=== PATIENT | female | born 1990 | race Caucasian/White ===

== ENCOUNTER 2017-12-08 16:39 | Emergency (ER) | payer OTHER ==
[2017-12-08] MEDS ORDERED: NS 1,000 ML IV ONE (17:06)
--- NOTE | 2017-12-08 17:17 | EDPHY ---
H & P Time Seen by Provider: 12/08/17 16:48 HPI/ROS: CHIEF COMPLAINT: Abdominal pain HISTORY OF PRESENT ILLNESS: 27-year-old female presents to the emergency department with right lower quadrant abdominal pain. Patient states that 10:00 p.m. Last night she was having some epigastric abdominal pain. She did not sleep well throughout the night. When she woke up this morning she had more localized pain in her right lower quadrant. She feels slightly nauseous and vomited 1 time last night. The patient is 9 weeks with her 1st . She had an appointment today with OBGYN and had an ultrasound which revealed a single living IUP. No evidence of ectopic per patient. Patient has had no vaginal bleeding or spotting. She has urinary frequency since she found out she was , however denies dysuria or urgency with urination. Has had low-grade temperature of 99.4 degrees. Denies chest pain or difficulty breathing. Denies back pain. Denies any reported trauma. Had frequent bowel movements yesterday, however no diarrhea. No melena or blood. REVIEW OF SYSTEMS: Constitutional: No fever, no chills. Eyes: No double or blurry vision. ENT: No sore throat. Respiratory: No cough, no shortness of breath. Cardiac: No chest pain. Gastrointestinal: Abdominal pain as above. No vomiting or diarrhea. Genitourinary: No dysuria. Musculoskeletal: No neck or back pain. Skin: No rashes. Neurological: No headache. 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 Afebrile. No apparent distress. Eyes: Pupils equal and round. Extraocular motions are all intact. ENT: Mouth: Mucous membranes moist. Respiratory: No wheezing, rhonchi, or rales, lungs are clear to auscultation. Cardiovascular: Regular rate and rhythm. Gastrointestinal: Abdomen is soft. Tenderness with palpation in the right lower quadrant. There is no rebound, guarding or masses noted. No CVA tenderness bilaterally. Neurological: Alert and oriented x 3, cranial nerves II through XII grossly intact Skin: Warm and dry, no rashes. Musculoskeletal: Nontender to palpate along the cervical, thoracic or lumbar spine. Neck is supple. Extremities: Full range of motion and no peripheral edema. Psychiatric: Patient is oriented X 3, there is no agitation. Constitutional: Initial Vital Signs Temperature (C) 36.8 C 12/08/17 16:41 Heart Rate 108 H 12/08/17 16:41 Respiratory Rate 17 12/08/17 16:41 Blood Pressure 119/79 12/08/17 16:41 O2 Sat (%) 98 12/08/17 16:41 O2 Delivery Mode Room Air Allergies/Adverse Reactions: ceftriaxone [From Rocephin] Allergy (Verified 12/08/17 16:41) Home Medications: Medication Instructions Recorded Ondansetron Odt [Zofran Odt 4 mg 4 mg PO Q4H PRN #20 tab 12/08/17 (*)] 12/08/17 Medical Decision Making - Diagnostics Imaging Results: Imaging Impressions Abdomen Ultrasound 12/08/17 17:06 Impression: There is a single viable intrauterine gestation with biometry concordant with menstrual dating. The patient should return at 20 weeks gestation for more complete anatomic screening and repeat biometry. LIMITED ABDOMINAL (APPENDICEAL) ULTRASOUND Technique: The right lower quadrant was evaluated with a high-resolution linear transducer, utilizing graded compression and color Doppler. Comparison Study: None. Findings: The cecum is identified, and is air-filled; the patient is not point- tender while scanning over the cecum. The appendix is not identified, however there is no rebound tenderness. There is a small amount of free fluid in the right lower quadrant. There are enlarged mesenteric lymph nodes identified (e.g. , the largest measuring 1.9 x 1.8 x 0.5 cm and 2.4 x 0.5 x 1.2 cm). Impression: 1. Nondiagnostic assessment of the appendix. 2. Right lower quadrant mesenteric adenitis, with a small amount of free fluid also seen. Findings were discussed with NEVIN CURTIS PA-C at 18:12, on 12/08/2017. Obstetrics Ultrasound 12/08/17 17:24 Impression: There is a single viable intrauterine gestation with biometry concordant with menstrual dating. The patient should return at 20 weeks gestation for more complete anatomic screening and repeat biometry. LIMITED ABDOMINAL (APPENDICEAL) ULTRASOUND Technique: The right lower quadrant was evaluated with a high-resolution linear transducer, utilizing graded compression and color Doppler. Comparison Study: None. Findings: The cecum is identified, and is air-filled; the patient is not point- tender while scanning over the cecum. The appendix is not identified, however there is no rebound tenderness. There is a small amount of free fluid in the right lower quadrant. There are enlarged mesenteric lymph nodes identified (e.g. , the largest measuring 1.9 x 1.8 x 0.5 cm and 2.4 x 0.5 x 1.2 cm). Impression: 1. Nondiagnostic assessment of the appendix. 2. Right lower quadrant mesenteric adenitis, with a small amount of free fluid also seen. Findings were discussed with NEVIN CURTIS PA-C at 18:12, on 12/08/2017. Imaging: Discussed imaging studies w/ call center operations manager Radiologist ED Course/Re-evaluation: 27-year-old female presents to the emergency department with abdominal pain. She is 9 weeks . Limited abdominal ultrasound and pelvic ultrasound obtained. Pelvic ultrasound reveals 9 week intrauterine with no evidence of torsion or free fluid. Limited abdominal ultrasound unable to see appendix. There is small amount of free fluid. There were inflamed lymph nodes noted in the right lower quadrant. Possibly related to mesenteric adenitis. 18:20: I spoke with Dr. Dmitriy Hidalgo, on-call general surgeon, regarding this patient's abdominal pain and concern for possible acute appendicitis. The patient was kept NPO and he will come to see the patient. Dr. Dmitriy Hidalgo offered admission to the hospital for observation, however the patient declined. The patient will return to the emergency department if she develops worsening abdominal pain, vomiting, fever, or if she feels worse in any way. Differential Diagnosis: Including but not limited to acute appendicitis, urinary tract infection, pyelonephritis, intrauterine , ectopic , mesenteric adenitis, gastritis, gastroenteritis - Data Points Laboratory Results: Laboratory Results 12/08/17 17:10 12/08/17 17:10 12/08/17 12/08/17 12/08/17 18:00 17:10 17:10 WBC 11.23 10^3/uL H 10^3/uL (3.80-9.50) RBC 4.47 10^6/uL 10^6/uL (4.18-5.33) Hgb 13.5 g/dL g/dL (12.6-16.3) Hct 38.4 % % (38.0-47.0) MCV 85.9 fL fL (81.5-99.8) MCH 30.2 pg pg (27.9-34.1) MCHC 35.2 g/dL g/dL (32.4-36.7) RDW 12.4 % % (11.5-15.2) Plt Count 296 10^3/uL 10^3/uL (150-400) MPV 9.2 fL fL (8.7-11.7) Neut % (Auto) 77.2 % H % (39.3-74.2) Lymph % (Auto) 10.8 % L % (15.0-45.0) [place] % (Auto) 9.2 % % (4.5-13.0) Eos % (Auto) 2.1 % % (0.6-7.6) Baso % (Auto) 0.4 % % (0.3-1.7) Nucleat RBC Rel Count 0.0 % % (0.0-0.2) Absolute Neuts (auto) 8.67 10^3/uL H 10^3/uL (1.70-6.50) Absolute Lymphs (auto) 1.21 10^3/uL 10^3/uL (1.00-3.00) Absolute Monos (auto) 1.03 10^3/uL H 10^3/uL (0.30-0.80) Absolute Eos (auto) 0.24 10^3/uL 10^3/uL (0.03-0.40) Absolute Basos (auto) 0.05 10^3/uL 10^3/uL (0.02-0.10) Absolute Nucleated RBC 0.00 10^3/uL 10^3/uL (0-0.01) Immature Gran % 0.3 % % (0.0-1.1) Immature Gran # 0.03 10^3/uL 10^3/uL (0.00-0.10) Sodium 134 mEq/L L mEq/L (135-145) Potassium 3.8 mEq/L mEq/L (3.5-5.2) Chloride 99 mEq/L mEq/L (97-110) Carbon Dioxide 22 mEq/l mEq/l (22-31) Anion Gap 13 mEq/L mEq/L (8-16) BUN 7 mg/dL mg/dL (7-23) Creatinine 0.6 mg/dL mg/dL (0.6-1.0) Estimated GFR > 60 Glucose 94 mg/dL mg/dL (70-100) Calcium 9.7 mg/dL mg/dL (8.5-10.4) Urine Color PALE YELLOW Urine Appearance CLEAR Urine pH 6.0 (5.0-7.5) Ur Specific [place] 1.004 (1.002-1.030) Urine Protein NEGATIVE (NEGATIVE) Urine Ketones NEGATIVE (NEGATIVE) Urine Blood NEGATIVE (NEGATIVE) Urine Nitrate NEGATIVE (NEGATIVE) Urine Bilirubin NEGATIVE (NEGATIVE) Urine Urobilinogen NEGATIVE EU EU (0.2-1.0) Ur Leukocyte Esterase NEGATIVE (NEGATIVE) Urine RBC NONE SEEN /hpf /hpf (0-3) Urine WBC 1-3 /hpf /hpf (0-3) Ur Epithelial Cells TRACE /lpf /lpf (NONE-1+) Urine Bacteria 1+ /hpf H /hpf (NONE SEEN) Urine Mucus TRACE /lpf /lpf (NONE-1+) Urine Glucose NEGATIVE (NEGATIVE) Medications Given: Discontinued Medications Sodium Chloride (Ns) 1,000 mls @ 0 mls/hr IV ONCE ONE PRN Reason: Wide Open Stop: 12/08/17 17:07 Last Admin: 12/08/17 17:11 Dose: 1,000 mls Ondansetron HCl (Zofran) 4 mg IVP EDNOW ONE Stop: 12/08/17 18:31 Last Admin: 12/08/17 18:37 Dose: 4 mg Ondansetron HCl (Zofran Odt 4 Mg Prepack#2) 1 btl TAKEHOME EDNOW ONE Stop: 12/08/17 20:11 Last Admin: 12/08/17 20:16 Dose: 1 btl Departure - Departure Disposition: Home, Routine, Self-Care Clinical Impression: Intrauterine Abdominal pain Qualifiers: Abdominal location: right lower quadrant Qualified Code(s): R10.31 - Right lower quadrant pain Condition: Fair Instructions: Ondansetron (By mouth), Acute Abdominal Pain (ED), First Trimester (ED) Additional Instructions: Abdominal Pain: Return to the Emergency Department immediately for increasing pain, fever, vomiting, or if not completely better in 8-12 hours. Referrals: Dmitriy Hidalgo MD [Medical Doctor] - As per Instructions (General surgeon on- call) Prescriptions: Ondansetron Odt [Zofran Odt 4 mg (*)] 4 mg PO Q4H PRN #20 tab PRN Reason: Nausea/Vomiting, Use 1st
[2017-12-08 17:25] LABS: PLATELET COUNT 296 10^3/uL (150-400)
[2017-12-08] MEDS ORDERED: ONDANSETRON 4 MG/2 ML VIAL IVP ONE (18:30)
[2017-12-08 19:44] VITALS: RESP 16
[2017-12-08] MEDS ORDERED: ONDANSETRON DISINTEGRATING 4 MG TAB PO PRN (19:53)
--- NOTE | 2017-12-08 19:55 | PDCONSULT ---
Punching Machine Operator Note: #[id number] S MD Gwen, FACS
[2017-12-08] MEDS ORDERED: ONDANSETRON 4MG PREPACK#2 BTL TAKEHOME ONE (20:10)
[2017-12-08 20:18] VITALS: BP 112/73; PULSE 88; TEMP 99.1; O2SAT 98
--- NOTE | 2017-12-08 21:25 | GCON ---
[f rep st] CONSULTATION GENERAL SURGERY CONSULTATION DATE OF CONSULTATION: 12/08/2017 REFERRING PHYSICIAN: DAVID Triplett CHIEF COMPLAINT: Abdominal pain. HISTORY OF PRESENT ILLNESS: The patient is a 27-year-old female with a 9-week intrauterine who presented to the emergency room today for evaluation of abdominal pain. The patient began feeli ng ill yesterday morning when she awoke and was lightheaded and dizzy. Throughout the day, she had s everal bowel movements, and when she returned home in the early evening, developed epigastric abdomin al pain and nausea. She had been experiencing nightly nausea for the past 3-4 weeks, and that sympto m was not new. The epigastric pain, however, had not previously occurred. She continued to feel poo rly throughout the evening. The pain became more lower abdominal in the morning, and she presented t [facility] for evaluation. She was discharged home and returned to the emergency room in the afternoon when her symptoms became worse. She was seen in the emergency room by Sonal Vasquez PA-C. An ultrasound was performed and Surgical consultation was requested. PAST MEDICAL HISTORY: G1, P0. MEDICATIONS: Zyrtec. ALLERGIES: Ceftriaxone. PAST SURGICAL HISTORY: No prior abdominal surgeries. SOCIAL HISTORY: The patient is a nonsmoker. Denies alcohol use. Patient is , accompanied by her , Tomas. 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 FAMILY HISTORY: Noncontributory. REVIEW OF SYSTEMS: Patient denies diarrhea, melena, hematochezia. She had 1 episode of emesis last night; none since then. She is currently hungry. There is no history of trauma. She has had no vag inal bleeding or discharge. PHYSICAL EXAMINATION: VITAL SIGNS: Temperature 36.8, subsequently gretchen to 38, and then to 37.3, pul se 90, respiratory rate 16, O2 saturation is 96% on room air. GENERAL: The patient is a pleasant, y oung woman who appears in no acute distress. When I walked into the room, she sat bolt upright on he zakiya clay and greeted me. HEENT: No cervical or supraclavicular adenopathy. Sclerae are anicteric. LUNGS: Clear to auscultation. ABDOMEN: Soft, with normoactive bowel sounds. Patient has percussi on tenderness in the right and left lateral lower quadrants, as well as in the suprapubic midline. T here is mild tenderness to deep palpation in both lower quadrants. Rovsing sign is negative. There is no guarding in the right lower quadrant. No palpable mass. There is no upper abdominal tendernes s, mass, hepatosplenomegaly. There is no palpable hernia. There is no back, flank, or CVA tendernes s. PELVIC: Exam was not performed. IMAGING: Ultrasound images were reviewed and demonstrate an uncomplicated 9-week intrauterine pregna ncy, small left ovarian cyst, no free fluid in the pelvis. The appendix was not visualized. LABORATORY STUDIES: WBC is 11.2, hemoglobin 13.5, hematocrit 38.4, platelets 296,000. Sodium 134, p otassium 3.8, chloride 99, BUN 7, creatinine 0.6. Urinalysis was negative on dipstick, trace epithel ial cells and +1 bacteria, with 1-3 white blood cells, no glucose. IMPRESSION: Abdominal pain of unclear etiology. Clinical exam and history not entirely consistent w ith appendicitis, though this could not be excluded. I discussed the options of management with the patient, including appendectomy under spinal anesthesia versus observation. The patient is comfortab le with a further period of observation. I offered hospitalization for observation, and she preferre d to return home, and will contact me directly should she have worsening symptoms, or I will be happy to see her in the office as an outpatient as well tomorrow. /[id number]/MODL
== END 2017-12-08 20:18 | disposition home or self-care (01) ==
DX: O26.891 Other specified pregnancy related conditions, first trimester (principal); R10.31 Right lower quadrant pain; E86.9 Volume depletion, unspecified; Z3A.09 9 weeks gestation of pregnancy
CPT/HCPCS: 96374; J2405

== ENCOUNTER → 2018-03-10 | Outpatient (CLI) | payer OTHER | LOC: FIMAGING 07:24 | PROVIDERS: ATTEND Obstetrics & Gynecology | DX: Z34.02 Encounter for supervision of normal first pregnancy, second trimester (principal); Z3A.21 21 weeks gestation of pregnancy ==

== ENCOUNTER 2018-07-13 23:36 | Inpatient (IN) | payer OTHER ==
[2018-07-14] MEDS: LR 500 ML IV SCH ×2 (00:05→06:55)
[2018-07-14] MEDS ORDERED: fentaNYL 100 MCG/2 ML INJ IVP ONE (00:20)
[2018-07-14] MEDS ORDERED: LIDOCAINE 1% 300 MG/30 ML SDV SC PRN (00:57)
[2018-07-14] MEDS ORDERED: MISOPROSTOL 200 MCG TAB PR PRN (00:57)
[2018-07-14] MEDS ORDERED: OLIVE OIL 118 ML BTL MISC PRN (00:57)
[2018-07-14] MEDS ORDERED: OXYTOCIN/RINGERS LACTATE 1,000 ML IV PRN (00:57)
[2018-07-14] MEDS ORDERED: TERBUTALINE SULFATE 1 MG/ML VIAL IV PRN (00:57)
[2018-07-14] MEDS ORDERED: EPSOM SALT 454 GM TP PRN (00:57)
[2018-07-14] MEDS ORDERED: IBUPROFEN 600 MG TAB PO PRN (00:57)
[2018-07-14] MEDS ORDERED: LR 1,000 ML IV PRN (00:57)
[2018-07-14] MEDS: fentaNYL 100 MCG/2 ML INJ IVP PRN ×3 (01:12→03:27)
[2018-07-14 01:33] LABS: PLATELET COUNT 329 10^3/uL (150-400)
[2018-07-14] MEDS ORDERED: LIDOCAINE 1% 300 MG/30 ML SDV ONE (01:46)
[2018-07-14] MEDS ORDERED: MISOPROSTOL 200 MCG TAB ONE (01:47)
[2018-07-14] MEDS ORDERED: OLIVE OIL 118 ML BTL ONE (01:47)
[2018-07-14] MEDS ORDERED: AMMONIA AROMATIC 1 EACH AMP IH ONE (01:47)
[2018-07-14] MEDS ORDERED: OXYTOCIN 10 UNIT/ML VIAL ONE (01:47)
--- NOTE | 2018-07-14 02:12 | PDGENHP ---
History and Physical History and Physical: Care: [facility] HPI: Patient is a 27yo with IUP@40-0 weeks that presents to L&D with complaints of contractions since 0800. She states the contractions are more intense and closer together. She is rating pain with contractions approx 7/10. She declines pain relief at this time. She denies any LOF, VB. She reports +FM. EDC: 07/14/2018 which is based on LMP: 10/08/17 which is known and consistent with Ultrasound at 8 weeks. Her is complicated by: ?placental mass, HSV type 1 Review of Systems: Constitutional: Denies any fever, chills, or fatigue HEENT: denies any visual changes, difficulty swallowing, hearing loss Cardiovascular: Denies any chest pain, palpitations, leg swelling Respiratory: denies any cough, wheezing, or shortness of breathe GI: Denies any nausea, vomiting, diarrhea, constipation : denies any dysuria, urgency, frequency, vaginal bleeding Musculoskeletal: denies any muscle or bone pain Skin: denies any rashes Neuro: denies any headache, seizures, lightheadedness, dizziness, or loss of consciousness Psychiatric: denies any depression, anxiety, or SI/HI thoughts HISTORY: Previous OB history: G1 Past medical history: HSV type 1 Past surgical history: labiaplasty, oral surgery Social: Denies any alcohol, tobacco, or drug use. Family history: Not relevant Medications: PNV, acyclovir Allergies (list reaction): Rocephin- Hives LABS: Rh: O+ ABS: Neg Rubella: Immune HbsAg: NR HIV: NR VDRL: NR 1hr: 77 GC: Neg Chlamydia: Neg Pap: Normal GBS: negative BMI: (prepreg) 21 PHYSICAL EXAM: Constitutional: WN, A&Ox3 HEENT: normocephalic atraumatic, supple Skin: Warm, dry, intact Heart: RRR, no murmur Chest: CTA-B Abdomen: Soft, nontender, gravid SVE: 4/90/-2 Extremities: trace edema, negative homans sign Neuro: grossly normal Psych: normal affect assessment: FHT baseline 135 +accels, no decels, moderate variability Contractions: toco q 2-3 Assessment: 1) [id number] with IUP@40-0wks 2) early/active labor 3) GBS negative 4) Cat 1 FHR tracing Plan: 1) Admit to L&D 2) expectant management 3) pain management PRN 4) anticipate Today's visit was approximately 30 min, of which >50% of visit 20 min, was spent face to face with pt on direct counseling/coordination of care.
--- NOTE | 2018-07-14 03:23 | OBPROG ---
Labor Progress Note Assessment/Plan: Assessment: [id number] with IUP@ 39-6wks Early/ACtive labor GBS Negative cat 1 FHR tracing Plan: SAMANTA at this time reassess 2hr/PRN anticipate 07/14/18 03:21 Subjective/Intrapartum Course: 07/14/18 03:22 Pt unable to maintain composure with contractions. She is requesting pain meds for relief. ERROL Marin, At BS and supportive. Objective: 07/14/18 00:05 Patient ABO/Rh O POSITIVE 07/14/18 00:05 - SVE Dilation (cm): 5 Effacement (%): 90 Station: -1 - FHR Assessment Melo FHR (bpm): 135 FHR Pattern Variability: Moderate FHR Category: 1 Oxytocin Orders Assessment - Pre-Induction/Augmentation Assessment Gestational Age: 40 week(s) and 0 day(s) ICD10 Worksheet Patient Problems: Problems Problem Status Onset Labor, prolonged latent phase Acute - ICD10 Problem Qualifiers (1) Labor, prolonged latent phase
[2018-07-14] MEDS ORDERED: PHENYLEPHRINE HCL 100 MCG/ML SYR ONE (03:49)
[2018-07-14] MEDS ORDERED: fentaNYL 2MCG/ML/BUP 0.1% RTU 100 ML BAG EP ONE (03:49)
[2018-07-14] MEDS ORDERED: BUPIVACAINE 0.25% 30 ML SDV ONE ×2 (03:49→08:23)
[2018-07-14] MEDS ORDERED: METOCLOPRAMIDE 10 MG/2 ML VIAL IVP PRN (04:35)
[2018-07-14] MEDS ORDERED: PHENYLEPHRINE HCL 100 MCG/ML SYR IVP PRN (04:35)
[2018-07-14] MEDS ORDERED: NALOXONE HCL 0.4 MG/ML INJ IVP PRN (04:35)
[2018-07-14] MEDS ORDERED: ONDANSETRON 4 MG/2 ML VIAL IVP PRN (04:35)
--- NOTE | 2018-07-14 04:37 | PREANESOB ---
Obstetric Pre-Anesthesia Info - General Info Proposed Procedure: CSE Labor -> : 1 Para: 0 LOUIE: 07/14/18 Gestational Age: 40 week(s) and 0 day(s) - Info Status: Full Term - Labor Status Cervical Dilation per last OB SVE: 5 Station per last OB SVE: -1 Amniotic Fluid Color: Clear PIH: No Magnesium Sulfate in Use: No Indications for Labor Analgesia: Pain Control Anesthesia Allergies/Adverse Reactions: Allergy/AdvReac Type Severity Reaction Status Date / Time ceftriaxone [From Rocephin] Allergy Verified 12/08/17 16:41 Home Medications: Medication Instructions Recorded Ondansetron Odt [Zofran Odt 4 mg 4 mg PO Q4H PRN #20 tab 12/08/17 (*)] 12/08/17 Visit Medications: Generic Name Dose Route Start Last Admin Trade Name Freq PRN Reason Stop Dose Admin Fentanyl 100 mcg 07/14/18 00:57 07/14/18 03:27 Sublimaze IVP 07/24/18 00:56 50 mcg Q4HRS PRN Administration Pain, Severe Unable to Take PO Lactated Ringer's 1,000 mls @ 0 mls/hr 07/14/18 00:57 07/14/18 03:28 Lr IV 07/15/18 00:56 1,000 mls PRN PRN Administration SEE PROTOCOL CONDITIONS Protocol Per Protocol Oxytocin/Lactated Ringer's 1,000 mls @ 125 mls/hr 07/14/18 00:57 Pitocin 20 Units/Lr (Premix) IV PRN PRN Post bleeding Ibuprofen 600 mg 07/14/18 00:57 Motrin PO ONCE PRN post , pain Lidocaine HCl 300 mg 07/14/18 00:57 Lidocaine Hcl 1% SC 01/10/19 00:56 ONCE PRN episiotomy Magnesium Sulfate 454 gm 07/14/18 00:57 Epsom Salt TP 01/10/19 00:56 Q1H PRN perineal discomfort Misoprostol 800 - 1,000 mcg 07/14/18 00:57 Cytotec [place] ONCE PRN Vaginal Atony/Bleeding Dixie Oil 118 ml 07/14/18 00:57 Sweet Oil MISC 01/10/19 00:56 ONCE PRN perineal massage Terbutaline Sulfate 0.25 mg 07/14/18 00:57 Brethine IV 01/10/19 00:56 ONCE PRN Tachysystole Discontinued Medications Generic Name Dose Route Start Last Admin Trade Name Merrill PRN Reason Stop Dose Admin Ammonia (Aromatic Spirit) Confirm 07/14/18 01:47 Ammonia Aromatic Administered 07/14/18 01:48 Dose 1 each IH .STK-MED ONE Bupivacaine HCl Confirm 07/14/18 03:49 Sensorcaine 0.25% Sdv Administered 07/14/18 03:50 Dose 30 ml .ROUTE .STK-MED ONE Fentanyl 50 mcg 07/14/18 00:20 07/14/18 00:28 Sublimaze IVP 07/14/18 00:21 50 mcg ONCE ONE Administration Fentanyl/Bupivacaine HCl Confirm 07/14/18 03:49 Fentanyl/Bupivacaine/Ns 2 Mcg/Ml 0.1% (Premix Administered 07/14/18 03:50 Dose 100 ml EP .STK-MED ONE Lidocaine HCl Confirm 07/14/18 01:46 Lidocaine Hcl 1% Administered 07/14/18 01:47 Dose 300 mg .ROUTE .STK-MED ONE Misoprostol Confirm 07/14/18 01:47 Cytotec Administered 07/14/18 01:48 Dose 1,000 mcg .ROUTE .STK-MED ONE Dixie Oil Confirm 07/14/18 01:47 Sweet Oil Administered 07/14/18 01:48 Dose 118 ml .ROUTE .STK-MED ONE Oxytocin Confirm 07/14/18 01:47 Pitocin Administered 07/14/18 01:48 Dose 40 unit .ROUTE .STK-MED ONE Phenylephrine HCl Confirm 07/14/18 03:49 Neosynephrine Administered 07/14/18 03:50 Dose 1,000 mcg .ROUTE .STK-MED ONE - Anesthesia History Response to Local Anesthetics: Not Applicable Anesthesia & Operative History: No Prior Problems Family Anesthesia History: Not Applicable - Social History Substance Use/Abuse: Denies - Vital Signs Height/Weight (Nursing): Height 157.48 cm Weight 71.214 kg - Focused Exam Neck exam: FROM, decreased ROM Mouth exam: normal dental/mouth exam Pulmonary: no respiratory distress Cardiovascular: regular rate and rhythym Labs: 07/14/18 00:05 Patient ABO/Rh O POSITIVE 07/14/18 00:05 - Plan Consent Signed and on Chart: Yes Patient/Guardian Understands and Agrees to Plan: Yes Urgent/Emergent Case: Andreina kapoor completed preop but documented later for safe timely pt care
[2018-07-14] MEDS ORDERED: fentaNYL 2MCG/ML/BUP 0.1% RTU 100 ML EP SCH (05:00)
--- NOTE | 2018-07-14 13:55 | OBDEL ---
Info Type: Vaginal Presentation at Delivery: Vertex L&D Analgesia/Anesthesia Type: Epidural GBS+: No Intrapartum Medications: Generic Name Dose Route Start Last Admin Trade Name Freq PRN Reason Stop Dose Admin Fentanyl 100 mcg 07/14/18 00:57 07/14/18 03:27 Sublimaze IVP 07/24/18 00:56 50 mcg Q4HRS PRN Administration Pain, Severe Unable to Take PO Lactated Ringer's 1,000 mls @ 0 mls/hr 07/14/18 00:57 07/14/18 03:28 Lr IV 07/15/18 00:56 1,000 mls PRN PRN Administration SEE PROTOCOL CONDITIONS Protocol Per Protocol Fentanyl/Bupivacaine HCl 100 mls @ 0 mls/hr 07/14/18 05:00 07/14/18 03:45 Fentanyl/Bupivacaine/Ns 2 Mcg/Ml 0.1% (Premix EP 07/24/18 04:59 100 mls CONT RADHA Administration Protocol As Directed Lactated Ringer's 500 mls @ 0 mls/hr 07/14/18 05:00 07/14/18 06:55 Lr IV 01/10/19 04:59 500 mls CONT RADHA Administration As Directed Discontinued Medications Generic Name Dose Route Start Last Admin Trade Name Freq PRN Reason Stop Dose Admin Fentanyl 50 mcg 07/14/18 00:20 07/14/18 00:28 Sublimaze IVP 07/14/18 00:21 50 mcg ONCE ONE Administration Oxytocin/Lactated Ringer's 1,000 mls @ 125 mls/hr 07/14/18 00:57 07/14/18 12: 00 Pitocin 20 Units/Lr (Premix) IV 1,000 mls PRN PRN Administration Post bleeding Ibuprofen 600 mg 07/14/18 00:57 07/14/18 12:27 Motrin PO 600 mg ONCE PRN Administration post , pain - Hospital Course Intrapartum: 07/14/18 03:22 Pt unable to maintain composure with contractions. She is requesting pain meds for relief. ERROL Marin, At BS and supportive. Indications for Delivery: Spontaneous Labor Vaginal Delivery - Delivery Provider Delivery Physician/CNM: Haylie Campo - Labor and Delivery Onset of Contractions Date: 07/13/18 Onset of Contractions Time: 15:00 Rupture of Membranes Date: 07/14/18 Rupture of Membranes Time: 08:02 Rupture of Membranes Type: Artificial Amniotic Fluid Color: Clear Dilation Complete Date: 07/14/18 Dilation Complete Time: 11:18 Placenta Delivery Date: 07/14/18 Placenta Delivery Time: 12:00 Total Hours of Labor: 21 Non-surgical Procedures: Amniotomy Laceration: 1st Degree Repair: 3-0, Vicryl Vaginal Sponge Count Correct: Yes Vaginal Needle Count Correct: Yes Vaginal Sweep Performed: Yes EBL: 200 Delivery Events: None [place] Data LOUIE: 07/14/18 Gestational Age: 40 week(s) and 0 day(s) Melo Delivery Date: 07/14/18 Delivery Time: 11:55 Sex of Infant: Female Score (1 Min): 8 Score (5 Min): 9 ICD10 Worksheet Patient Problems: Problems Problem Status Onset Labor, prolonged latent phase Acute Vaginal delivery Acute - ICD10 Problem Qualifiers (1) Vaginal delivery
[2018-07-14] MEDS ORDERED: SIMETHICONE 80 MG TAB CHEW PO PRN (15:19)
[2018-07-14] MEDS ORDERED: DOCUSATE SODIUM 100 MG CAP PO PRN (15:19)
[2018-07-14] MEDS ORDERED: HYDROCORTISONE 0.5% CREAM TP PRN (15:19)
[2018-07-14] MEDS ORDERED: HYDROCODONE/APAP 5/325 TAB PO PRN (15:19)
[2018-07-14] MEDS: ACETAMINOPHEN 325 MG TAB PO SCH (16:54)
[2018-07-14] MEDS: IBUPROFEN 600 MG TAB PO SCH (19:16)
[2018-07-15] MEDS: ACETAMINOPHEN 325 MG TAB PO SCH ×5 (00:09→17:56)
[2018-07-15] MEDS: IBUPROFEN 600 MG TAB PO SCH ×3 (01:44→14:41)
--- NOTE | 2018-07-15 06:46 | POSTANESTH ---
Post Anesthetic Evaluation Cardiovascular Status: Normal, Stable Respiratory Status: Normal, Stable Level of Consciousness/Mental Status: Can Participate in Eval Pain Control: Adequate, Prn Tx Ordered Nausea/Vomiting Control: Adequate, Prn Tx Ordered Complications Possibly Related to Anesthesia: None Noted
[2018-07-15 08:30] VITALS: BP 108/72
--- NOTE | 2018-07-15 11:48 | OBPP ---
Progress Note Assessment/Plan: Assessment: Stable PPD 1. Difficulty voiding. Significant labial swelling. Establishing . Plan: 07/15/18 11:49 Potts is out now. Will ok for discharge if able to void adequate amount twice before this evening. If unable to void another potts will be placed and will reassess 12 hours later. Reviewed plan to follow up in the office at 2/4/ 6 weeks or sooner as indicated. Subjective/ Course: 07/15/18 11:45 Pt doing well overall. She did have a very difficult time voiding yesterday due to significant labial swelling. Had a potts catheter inserted last night around 2300. Requested getting it out this morning which was done. Would like to discharge home today if she is able to void without difficulty. States go well. Very happy with experience. Objective: 07/14/18 00:05 Patient ABO/Rh O POSITIVE 07/14/18 00:05 Temp Pulse Resp BP Pulse Ox 36.1 C 78 16 108/72 95 07/15/18 08:00 07/15/18 08:00 07/15/18 08:00 07/15/18 08:00 07/15/18 08:00 Breasts: Nipples intact bilaterally, soft Perineum: Significant swelling of the labia and perineum. No hematoma present. Uterine Position/Fundal Height: Umbilicus -1 Uterine Tone: Firm
--- NOTE | 2018-07-15 17:28 | OBGCSDC ---
General Delivery Information - General Info : 1 Para: 1 Abortions: 0 Type: Vaginal L&D Analgesia/Anesthesia Type: Epidural Admission Date: 07/14/18 Labs: Patient ABO/Rh O POSITIVE 07/14/18 00:05 Hct 39.2 % (38.0-47.0) 07/14/18 00:05 - Hospital Course Intrapartum: 07/14/18 03:22 Pt unable to maintain composure with contractions. She is requesting pain meds for relief. ERROL Marin, At BS and supportive. : 07/15/18 11:45 Pt doing well overall. She did have a very difficult time voiding yesterday due to significant labial swelling. Had a potts catheter inserted last night around 2300. Requested getting it out this morning which was done. Would like to discharge home today if she is able to void without difficulty. States go well. Very happy with experience. Vaginal - Delivery Provider Delivery Physician/CNM: Haylie Campo - Diagnosis Rupture of Membranes Type: Artificial Amniotic Fluid Color: Clear Laceration: 1st Degree Repair: 3-0, Vicryl Delivery Events: None - Procedures Non-surgical Procedures: Amniotomy - Delivery Non-surgical Procedures: Amniotomy EBL: 200 Data LOUIE: 07/14/18 Gestational Age: 40 week(s) and 1 day(s) Melo Delivery Date: 07/14/18 Delivery Time: 11:55 Sex of : Female Score (1 Min): 8 Score (5 Min): 9 Discharge Information - Discharge Information Prescriptions: Ibuprofen [Motrin (*)] 600 mg PO Q6H PRN #60 tab PRN Reason: Pain, Moderate Condition: Good Instruction/Follow Up: Two Weeks, Four Weeks, Six Weeks
== END 2018-07-15 19:08 | disposition home or self-care (01) | DRG 774 ==
LOC: FLD 23:36 → OBSVTOIN 07-14 00:58 → FOB 07-14 15:26
PROVIDERS: ADMIT Advanced Practice Midwife; ATTEND Advanced Practice Midwife
PROC: 10E0XZZ Delivery of Products of Conception, External Approach (ICD-10-PCS; principal; 2018-07-14)
PROC: 0HQ9XZZ Repair Perineum Skin, External Approach (ICD-10-PCS; principal; 2018-07-14)
PROC: 10907ZC Drainage of Amniotic Fluid, Therapeutic from Products of Conception, Via Natural or Artificial Opening (ICD-10-PCS; principal; 2018-07-14)
DX: O98.52 Other viral diseases complicating childbirth (principal); Z37.0 Single live birth; Z3A.40 40 weeks gestation of pregnancy; B00.9 Herpesviral infection, unspecified; O70.0 First degree perineal laceration during delivery
CPT/HCPCS: J2370; J2590; J3010